=== PATIENT | female | born 1980 | race Caucasian/White ===

== ENCOUNTER 2020-12-11 18:53 | Emergency (ER) | payer OTHER ==
[~2020-12-11] VITALS: Ht 152.4 cm; Wt 59.0 kg
[~2020-12-11 18:53] MED LIST: CODE1TAB37 PO; SYNTHROID50 MCG PO
[2020-12-12] MEDS ORDERED: TAMS0.4C PO (00:11)
[2020-12-12] MEDS ORDERED: KETO10TA2 PO (00:11)
[2020-12-12] MEDS ORDERED: BACTRIM DS TAB1 EACH PO (00:11)
== END 2020-12-12 01:09 | disposition home or self-care (01) ==
LOC: ER 18:53
DX: N20.1 Calculus of ureter (principal); N20.0 Calculus of kidney; R10.32 Left lower quadrant pain